=== PATIENT | male | born 1985 | race Caucasian/White ===

== ENCOUNTER 2022-03-12 16:52 | Emergency (ER) | payer OTHER ==
[2022-03-12] MEDS ORDERED: NORFLEX 100 MG100 MG PO (21:09)
[2022-03-12] MEDS ORDERED: IBUPROFEN600 MG PO (21:09)
== END 2022-03-12 21:42 | disposition home or self-care (01) ==
LOC: ER1 16:52
DX: S13.4XXA Sprain of ligaments of cervical spine, initial encounter (principal); S60.221A Contusion of right hand, initial encounter; V49.9XXA Car occupant (driver) (passenger) injured in unspecified traffic accident, initial encounter; W22.10XA Striking against or struck by unspecified automobile airbag, initial encounter
CPT/HCPCS: 72125; 73130; 99284